=== PATIENT | female | born 1955 | race African-American/Black ===

== ENCOUNTER 2024-04-05 15:48 | Inpatient (IN) | payer MEDICARE, MEDICAID ==
[~2024-04-05] VITALS: Ht 172.7 cm; Wt 120.7 kg
[~2024-04-05 15:48] MED LIST: AMLO10TA80 PO; ASPI-1497 MT; CLON0.1T PO; DOCU-150 PO; FAMO20TA8 PO; GABA-290 MT; GABA-529 PO; INSLIS SUBCUT; KETO10TA2 PO; LANTUSUD SUBCUT; LOSA100T33 PO; LOV120 SUBCUT; METF-873 MT; ROSU20TA2 MT; TOPUD PO
[2024-04-05] MEDS: BLOOD SUGAR DIAGNOSTIC STRIP TEST SCH (17:00)
[2024-04-05] MEDS ORDERED: DEXTROSE 50% WATER 50ML SYRINGE IV PRN (17:00)
[2024-04-05] MEDS: INSULIN LISPRO 100 UNITS/ML SUBCUT SCH ×2 (17:00→18:45)
[2024-04-05] MEDS ORDERED: GUAIFENESIN 200MG/10ML SUGAR FREE UDC PO PRN (17:45)
[2024-04-05] MEDS ORDERED: ONDANSETRON HCL 4MG/2ML INJ IV PRN (17:45)
[2024-04-05] MEDS ORDERED: MAGNESIUM/ALUMINUM HYDROXIDE/SIMETHICONE 30ML UDC PO PRN (17:45)
[2024-04-05] MEDS ORDERED: IPRATROPIUM/ALBUTEROL 0.5-3(2.5)MG/3ML NEB HHN PRN (17:45)
[2024-04-05 18:00] VITALS: BP 141/96; PULSE 83; RESP 20; TEMP 98.8
[2024-04-05] MEDS: DOCUSATE SODIUM 100MG CAPSULE PO SCH (18:40)
[2024-04-05 19:30] VITALS: BP 150/84; PULSE 98; RESP 20; TEMP 96.9
[2024-04-05 20:00] VITALS: PULSE 98; RESP 20; TEMP 96.9
[2024-04-05] MEDS: MAGNESIUM 4 G PREMIX 100 ML IV NR (20:17)
[2024-04-05] MEDS: ENOXAPARIN 120MG/0.8ML SYR SUBCUT SCH (20:44)
[2024-04-05] MEDS: FAMOTIDINE 20MG TABLET PO SCH (20:44)
[2024-04-05] MEDS: PIPERACILLIN/TAZO 3.375G/50ML 50 ML IV SCH (20:56)
[2024-04-05] MEDS: GABAPENTIN 100MG CAPSULE PO SCH (22:20)
[2024-04-05] MEDS: INSULIN GLARGINE 100 UNITS/ML SUBCUT SCH (22:29)
[2024-04-06 07:26] LABS: CHLORIDE 107 mEq/L (98-107); POTASSIUM 3.6 mEq/L (3.5-5.1); SODIUM 139 mEq/L (136-145)
[2024-04-06 07:27] LABS: CALCIUM 10.2 mg/dL (8.7-10.4); CARBON DIOXIDE 27 mEq/L (21-32)
[2024-04-06 07:32] LABS: CREATININE 0.7 mg/dL (0.6-1.0); GLUCOSE 156 mg/dL (70-105); UREA NITROGEN BLOOD 5 mg/dL (9-23)
[2024-04-06 07:33] LABS: EOSINOPHILS % 2.6 % (0.0-5.0); HEMATOCRIT. 33.1 % (36.0-48.0); HEMOGLOBIN. 11.4 g/dL (12.0-16.0); LYMPHOCYTES % 32.6 % (20.0-50.0); MEAN CORPUSCULAR HEMOGLOBIN 29.8 pg (28.0-32.0); MEAN CORPUSCULAR HGB CONC 34.5 g/dL (31.0-37.0); MEAN CORPUSCULAR VOLUME 86.2 fL (81.0-99.0); MEAN PLATELET VOLUME 7.8 fl (7.4-10.4); MONOCYTES % 7.7 % (2.0-8.0); NEUTROPHILS % 56.1 % (40.0-76.0); PLATELET 504 x1000/uL (130-400); RED BLOOD CELL COUNT 3.84 mill/uL (4.2-5.4); RED CELL DISTRIBUTION WIDTH 15.4 % (11.6-14.6); WHITE BLOOD COUNT 5.2 x1000/uL (4.5-11.0)
[2024-04-06 08:00] VITALS: BP 165/96; PULSE 98; RESP 18; TEMP 96.9
[2024-04-06] MEDS: CLONIDINE 0.1MG TABLET PO PRN (11:09)
[2024-04-06 13:00] VITALS: BP 115/66
[2024-04-06] MEDS ORDERED: ACETAMINOPHEN 325MG TABLET PO PRN (13:45)
[2024-04-06] MEDS ORDERED: NALOXONE HCL 0.4MG/ML VIAL IV PRN (16:30)
[2024-04-06] MEDS ORDERED: BIMA2.5D4 EACHEYE (16:37)
[2024-04-06] MEDS ORDERED: SEMA0.258 SUBCUT (16:37)
[2024-04-06] MEDS ORDERED: EMPA25TA PO (16:37)
[2024-04-06] MEDS ORDERED: GABA-532 PO (16:37)
[2024-04-06] MEDS ORDERED: METO25TA6 PO (16:37)
[2024-04-06] MEDS ORDERED: APIX5TAB PO (16:37)
[2024-04-06] MEDS ORDERED: NETA2.5D EACHEYE (16:37)
[2024-04-06 20:00] VITALS: BP 101/61; PULSE 75; RESP 18; TEMP 98.4
[2024-04-07 08:00] VITALS: BP 131/71; PULSE 75; RESP 18; TEMP 97.7
[2024-04-07 08:05] LABS: FOLIC ACID (FOLATE) SERUM 9.68 ng/mL (>5.38); VITAMIN B12 SERUM 491 pg/mL (211-911)
[2024-04-07 08:06] LABS: FERRITIN 331 ng/mL (10-291)
[2024-04-07] MEDS: KETOROLAC 10MG TABLET PO PRN (08:21)
[2024-04-07] MEDS: CYANOCOBALAMIN 1000MCG/ML VIAL IM SCH (13:18)
[2024-04-07 20:00] VITALS: BP 116/56; PULSE 67; RESP 19; TEMP 97.5
[2024-04-07 21:22] LABS: BASOPHILS % 1.1 % (0.0-2.0); EOSINOPHILS % 4.9 % (0.0-5.0); HEMATOCRIT. 29.4 % (36.0-48.0); HEMOGLOBIN. 10.1 g/dL (12.0-16.0); LYMPHOCYTES % 42.5 % (20.0-50.0); MEAN CORPUSCULAR HEMOGLOBIN 29.9 pg (28.0-32.0); MEAN CORPUSCULAR HGB CONC 34.5 g/dL (31.0-37.0); MEAN CORPUSCULAR VOLUME 86.5 fL (81.0-99.0); MEAN PLATELET VOLUME 8.1 fl (7.4-10.4); MONOCYTES % 8.2 % (2.0-8.0); NEUTROPHILS % 43.3 % (40.0-76.0); PLATELET 439 x1000/uL (130-400); RED CELL DISTRIBUTION WIDTH 15.7 % (11.6-14.6); WHITE BLOOD COUNT 4.5 x1000/uL (4.5-11.0)
[2024-04-07 21:26] LABS: CHLORIDE 106 mEq/L (98-107); POTASSIUM 3.8 mEq/L (3.5-5.1); SODIUM 139 mEq/L (136-145)
[2024-04-07 21:27] LABS: CALCIUM 10.7 mg/dL (8.7-10.4); CARBON DIOXIDE 29 mEq/L (21-32)
[2024-04-07 21:31] LABS: IRON 74 ug/dL (50-170)
[2024-04-07 21:32] LABS: CREATININE 0.8 mg/dL (0.6-1.0); GLUCOSE 184 mg/dL (70-105); UREA NITROGEN BLOOD 7 mg/dL (9-23)
[2024-04-07 21:34] LABS: ALANINE AMINOTRANSFERASE 13 IU/L (10-49); ASPARTATE AMINOTRANSFERASE 24 IU/L (<34); BILIRUBIN TOTAL 0.4 mg/dL (0.1-1.0); PROTEIN TOTAL 7.5 g/dL (6.0-8.3); TOTAL IRON BINDING CAPACITY 277 ug/dl (250-425)
[2024-04-08 08:00] VITALS: BP 134/77; PULSE 80; RESP 20; TEMP 98.7
[2024-04-08] MEDS: ACETAMINOPHEN 325MG TABLET PO PRN (15:09)
[2024-04-08 20:00] VITALS: BP 144/78; PULSE 72; RESP 20; TEMP 98.2
[2024-04-09] MEDS: HYDROCODONE/ACETAMINOPHEN 5/325MG TABLET PO PRN (02:48)
[2024-04-09 08:00] VITALS: BP 167/88; PULSE 81; RESP 18; TEMP 96.8
[2024-04-09] MEDS: ERGOCALCIFEROL 50000UNITS CAPSULE PO SCH (14:15)
[2024-04-09] MEDS: LIDOCAINE 5% PATCH TOP SCH (14:30)
[2024-04-09] MEDS: DICLOFENAC SODIUM 1% GEL 50GM TOP SCH (17:00)
[2024-04-09 20:00] VITALS: BP 161/80; PULSE 87; RESP 20; TEMP 98.4
[2024-04-10 08:00] VITALS: BP 142/75; PULSE 78; RESP 19; TEMP 98.2
[2024-04-10 20:00] VITALS: BP 169/86; PULSE 85; RESP 18; TEMP 98.2
[2024-04-11 08:00] VITALS: BP 132/80; PULSE 100; RESP 18; TEMP 96.8
[2024-04-11 19:50] VITALS: BP 127/108; PULSE 85; RESP 20; TEMP 97.1
[2024-04-11 20:30] VITALS: BP 138/66
[2024-04-12 08:00] VITALS: BP 120/60; PULSE 80; RESP 19; TEMP 97.5
[2024-04-12 20:00] VITALS: BP 120/59; PULSE 72; RESP 18; TEMP 97
[2024-04-13 08:00] VITALS: BP 156/69; PULSE 82; RESP 20; TEMP 97.9
[2024-04-13 20:00] VITALS: BP 123/64; PULSE 73; RESP 18; TEMP 96.6
[2024-04-14 08:00] VITALS: BP 114/59; PULSE 70; RESP 20; TEMP 97.8
[2024-04-14 20:00] VITALS: BP 95/58; PULSE 63; RESP 19; TEMP 96.9
[2024-04-15 08:00] VITALS: BP 127/71; PULSE 72; RESP 20; TEMP 99.1
[2024-04-15] MEDS: POLYETHYLENE GLYCOL 3350 (17GM) 1 DOSE PACK PO SCH (09:00)
[2024-04-15 19:54] VITALS: BP 163/89; PULSE 75; RESP 22; TEMP 96.9
[2024-04-16 08:00] VITALS: BP 138/72; PULSE 83; RESP 17; TEMP 97.5
[2024-04-16] MEDS ORDERED: NALOXONE HCL 0.4MG/ML VIAL IV PRN (08:15)
[2024-04-16] MEDS: HYDROCODONE/ACETAMINOPHEN 5/325MG TABLET PO PRN (08:31)
[2024-04-16 20:00] VITALS: BP 118/60; PULSE 67; RESP 18; TEMP 97.9
[2024-04-17 08:00] VITALS: BP 163/81; PULSE 83; RESP 18; TEMP 96.9
[2024-04-17 20:00] VITALS: BP 142/70; PULSE 71; RESP 18; TEMP 98
[2024-04-18 08:00] VITALS: BP 164/92; PULSE 80; RESP 19; TEMP 97.9
[2024-04-18 08:47] VITALS: RESP 19
[2024-04-18 11:41] VITALS: BP 154/85; PULSE 80; TEMP 97.9; O2SAT 97
== END 2024-04-18 11:55 | disposition home health service (06) | DRG 551 ==
PROVIDERS: ADMIT Physical Medicine & Rehabilitation Spinal Cord Injury Medicine; ATTEND Internal Medicine
DX: M48.061 Spinal stenosis, lumbar region without neurogenic claudication (principal); A41.9 Sepsis, unspecified organism; I69.351 Hemiplegia and hemiparesis following cerebral infarction affecting right dominant side; E87.1 Hypo-osmolality and hyponatremia; G82.20 Paraplegia, unspecified; N39.0 Urinary tract infection, site not specified; Z68.41 Body mass index [BMI] 40.0-44.9, adult; D64.9 Anemia, unspecified; E11.65 Type 2 diabetes mellitus with hyperglycemia; E61.1 Iron deficiency; E66.9 Obesity, unspecified; E78.00 Pure hypercholesterolemia, unspecified; I10 Essential (primary) hypertension; M17.10 Unilateral primary osteoarthritis, unspecified knee; M47.26 Other spondylosis with radiculopathy, lumbar region; R32 Unspecified urinary incontinence; K59.09 Other constipation; G89.29 Other chronic pain; R55 Syncope and collapse; Z82.49 Family history of ischemic heart disease and other diseases of the circulatory system; Z91.81 History of falling; Z79.899 Other long term (current) drug therapy
CPT/HCPCS: 36415; 80048; 80053; 82306; 82607; 82728; 82746; 82962; 83036; 83540; 83550; 85025; 97110; 97116; 97150; 97163; 97166; 97530; 97535; 97542; J1650; J1815; J2543; J3420; J3475